=== PATIENT | male | born 1990 | race African-American/Black ===

== ENCOUNTER 2023-05-23 10:22 | Emergency (ER) | payer OTHER ==
[~2023-05-23] VITALS: Ht 170.2 cm; Wt 50.0 kg
[~2023-05-23 10:22] MED LIST: IBUP-1492 PO
[2023-05-23 10:31] VITALS: BP 132/87; PULSE 60; RESP 16; TEMP 98.4
[2023-05-23] MEDS ORDERED: NEOMYCIN/POLYMYXIN B/HYDROCORT 10 ML OTIC SOLUTION AD ONE (12:30)
[2023-05-23] MEDS ORDERED: AMOX TR/POT CLAV 875 MG/125 MG TABLET PO ONE (12:30)
[2023-05-23] MEDS ORDERED: IBUPROFEN 400 MG TABLET PO ONE (12:30)
[2023-05-23] MEDS ORDERED: CORTSOL AD (12:43)
[2023-05-23] MEDS ORDERED: AMOX1TAB16 PO (12:43)
[2023-05-23] MEDS ORDERED: IBUP-1506 PO (12:43)
== END 2023-05-23 13:19 | disposition home or self-care (01) ==
LOC: EMS 10:45
DX: H66.91 Otitis media, unspecified, right ear (principal); H60.91 Unspecified otitis externa, right ear; F17.210 Nicotine dependence, cigarettes, uncomplicated; F12.90 Cannabis use, unspecified, uncomplicated
CPT/HCPCS: 99284; Z7502; Z7610